=== PATIENT | female | born 1990 | race Caucasian/White ===

== ENCOUNTER 2016-07-07 19:15 | Emergency (ER) | payer MEDICAID, OTHER ==
[~2016-07-07] VITALS: Ht 167.6 cm; Wt 81.0 kg
[~2016-07-07 19:15] MED LIST: ACET500C5 PO; DICL50TA11 PO; HYDR-3498 PO; IBUP400T22 PO; IBUP800T25 PO; LORA-441 PO; OMEP20CA16 PO; PEN500 PO; UDMYL PO
[2016-07-07 19:57] VITALS: Ht 167.6 cm; Wt 81.0 kg
--- NOTE | 2016-07-07 21:07 | ERD ---
ER Documentation Chief Complaint Date/Time DATE: 07/07/16 TIME: 21:04 Chief Complaint MCCARTHY and jaw pain X 1 week, worst last day. no nuero deficit. HPI 35-year-old female presents to emergency department for complaints of headache, bilateral jaw pain, TMJ pain, for 1 week. Patient feels that her jaw most while sleeping. Patient described the headache as throbbing pain, for/10 scale, accompanied with jaw pain. Patient denies any fever or chills. Patient denies any head trauma. Patient took some ibuprofen for pain with Motrin. Patient denies any numbness or tingling. Patient denies any neck pain. Patient denies any dizziness. Patient denies any blurry vision. ROS All systems reviewed and are negative except as per history of present illness. Medications Home Meds Active Scripts Ibuprofen* (Motrin*) 400 Mg Tab, 400 MG PO Q6, #20 TAB Prov:SARAHY TEJADA PA-C 03/28/16 Penicillin V Potassium* (Penicillin V K*) 500 Mg Tab, 500 MG PO BID for 10 Days , TAB Prov:CARLIN MAGANA PA-C 12/18/15 Ibuprofen* (Motrin*) 800 Mg Tab, 800 MG PO Q6, #30 TAB Prov:CARLIN MAGANA PA-C 12/18/15 Omeprazole* (Omeprazole*) 20 Mg Capsule., 20 MG PO DAILY, #30 CAP Prov:STANLEY WEAVER NP 04/05/15 Magaldrate/Simethicone* (Mag-Al Plus Suspension*) 30 Ml Oral.susp, 30 ML PO Q6H Y for GASTROINTESTINAL UPSET, #120 ML Prov:STANLEY WEAVER NP 04/05/15 Diclofenac Sodium* (Diclofenac Sodium*) 50 Mg Tablet.dr, 50 MG PO TID, #20 TAB Prov:BUTCH CESAR DO 02/26/15 Hydrocodone Bit-Acetaminophen* ([place]*) 5-325 Mg Tab, 1 TAB PO Q6 Y for PAIN, # 7 TAB Prov:BUTCH CESAR DO 02/26/15 Lorazepam* (Ativan*) 0.5 Mg Tablet, 0.5 MG PO Q8, #10 Prov:FLOR STEVENSC 01/27/15 Acetaminophen* (Tylophen*) 500 Mg Capsule, 1 CAP PO Q6H Y for PAIN AND OR ELEVATED TEMP, #20 CAP Prov:PHONG JEWELL 01/21/15 Allergies Allergies: Coded Allergies: No Known Allergy (Unverified , 01/21/15) PMhx/Soc History of Surgery: No Anesthesia Reaction: No Hx Neurological Disorder: No Hx Respiratory Disorders: No Hx Cardiac Disorders: No Hx Psychiatric Problems: Yes (anxiety attacks) Hx Miscellaneous Medical Probl: Yes (HYPERTHYROIDISM) Hx Alcohol Use: Yes Hx Substance Use: No Hx Tobacco Use: No Smoking Status: Never smoker FmHx Family History: No coronary disease, No diabetes, No other Physical Exam Vitals Vital Signs Date Time Temp Pulse Resp B/P Pulse Ox O2 Delivery O2 Flow Rate FiO2 07/07/16 19:57 98.4 82 20 120/65 98 Physical Exam GENERAL: The patient is well developed and appropriate for usual state of health, in no apparent distress. HEENT: Atraumatic. Ears: Normal tympanic membrane, no erythema or bulging. No ear canal swelling. No ear discharge. No tenderness on palpation of bilateral TMJ area, and the tip of the jaw, able to do full range of motion without any restriction. Nose: normal nasal turbinates, no erythema or swelling. Normal nasal discharge. Throat: oropharynx clear. No tonsillar swelling or tonsillar exudates. No lymphadenopathy. CHEST: Clear to auscultation bilaterally. There are no rales, wheezes or rhonchi. HEART: Regular rate and rhythm. No murmurs, clicks, rubs or gallops. No S3 or S4. ABDOMEN: Soft, nontender and nondistended. Good bowel sounds. No rebound or guarding. No gross peritonitis. No gross organomegaly or masses. No Mendez sign or McBurney point tenderness. BACK: No midline or flank tenderness. EXTREMITIES: Equal pulses bilaterally. There is no peripheral clubbing, cyanosis or edema. No focal swelling or erythema. Full range of motion. Grossly neurovascularly intact. NEURO: Alert and oriented. Cranial nerves 2-12 intact. Motor strength in all 4 extremities with 5/5 strength. Sensation grossly intact. Normal speech and gait. Negative Romberg sign. Negative pronator drift. SKIN: There is no apparent rash or petechia. The skin is warm and dry. HEMATOLOGIC AND LYMPHATIC: There is no evidence of excessive bruising or lymphedema. No gross cervical, axillary, or inguinal lymphadenopathy. Results 24 hrs PROCEDURE: CT head, without contrast. CLINICAL INDICATION: Headache. TECHNIQUE: Noncontrast CT examination of the head, with axial, sagittal and coronal reformatted images. Automated dose exposure control was employed. CTDI: 44.68 mGy and DLP: 720.23 mGy-cm. COMPARISON: None. FINDINGS: Note acute hemorrhage. Subarachnoid spaces are substantially preserved and symmetric. Ventricles are unremarkable. No mass effect. Hodges-white matter distinction is preserved without evident decreased attenuation to suggest acute or recent infarct. Sinuses and osseous structures are unremarkable. IMPRESSION: No acute process in the head. RPTAT: [facility] Physician Christine Date Time Electronically viewed and signed by Physician Christine on 07/07/2016 22:31 RS/ CC: STANLEY WEAVER NP PROCEDURE: CT scan facial bones CLINICAL INDICATION: Headache, pain TECHNIQUE: CT scan of the face was performed on the a high-resolution multidetector CT scanner with multiple contiguous axial images obtained through the face. Coronal and sagittal reformatted images were obtained from the axial source images. Exam CTDI = 29.41 mGy and the DLP = 498.95 mGy-cm. One or more of the following dose reduction techniques were used: - Automated exposure control. - Adjustment of the mA and/or kV according to patient size. - Use of iterative reconstruction technique. COMPARISON: None available FINDINGS: The facial bones are intact. No fracture or dislocation is seen. Appearance of retention cysts in bilateral maxillary sinuses the largest 1.8 cm on the right. The soft tissues are unremarkable. The orbital globes are unremarkable. Nasal septum is midline. The zygomatic arches are symmetrically normal. IMPRESSION: No acute abnormality seen. RPTAT: HJES .Pert Sharp MD, MD Date Time Electronically viewed and signed by .Petr Sharp MD, MD on 07/07/2016 22:36 .S/ CC: STANLEY WEAVER NP Procedures/MDM Medical Decision Making: Patient symptoms is that is consistent with TMJ syndrome with nonspecific headache, possible tension headache, can be also early migraine. There is low suspicion for neurological emergencies at this time since patients neurologic exam is normal. Patient did not have any altered level consciousness, vomiting, changes in balance or memory and did not have any head injury. Patients CT scan of the head does not show any neurological emergencies at this time. Patient was given for tramadol for severe pain, ibuprofen for mild to moderate pain. Departure Diagnosis: Primary Impression: Headache Headache type: unspecified Headache chronicity pattern: acute headache Intractability: not intractable Qualified Code: R51 - Acute nonintractable headache, unspecified headache type Additional Impression: Jaw pain Condition: Stable Patient Instructions: Self-Care for Headaches, Tmj Syndrome STANLEY WEAVER NP Jul 07, 2016 21:06
--- NOTE | 2016-07-07 22:31 | RADRPT ---
PROCEDURE: CT head, without contrast. CLINICAL INDICATION: Headache. TECHNIQUE: Noncontrast CT examination of the head, with axial, sagittal and coronal reformatted im ages. Automated dose exposure control was employed. CTDI: 44.68 mGy and DLP: 720.23 mGy-cm. COMPARISON: None. FINDINGS: Note acute hemorrhage. Subarachnoid spaces are substantially preserved and symmetric. Ventricles are unremarkable. No mass effect. Hodges-white matter distinction is preserved without evident decreased attenuation t o suggest acute or recent infarct. Sinuses and osseous structures are unremarkable. IMPRESSION: No acute process in the head. RPTAT: [facility] Physician Christine Date Time Electronically viewed and signed by Physician Christine on 07/07/2016 22:31 RS/
--- NOTE | 2016-07-07 22:36 | RADRPT ---
PROCEDURE: CT scan facial bones CLINICAL INDICATION: Headache, pain TECHNIQUE: CT scan of the face was performed on the a high-resolution multidetector CT scanner wit h multiple contiguous axial images obtained through the face. Coronal and sagittal reformatted imag es were obtained from the axial source images. Exam CTDI = 29.41 mGy and the DLP = 498.95 mGy-cm. One or more of the following dose reduction techniques were used: - Automated exposure control. - Adjustment of the mA and/or kV according to patient size. - Use of iterative reconstruction technique. COMPARISON: None available FINDINGS: The facial bones are intact. No fracture or dislocation is seen. Appearance of retention cysts in bilateral maxillary sinuses the largest 1.8 cm on the right. The soft tissues are unremarkable. The orbital globes are unremarkable. Nasal septum is midline. The zygomatic arches are symmetrically normal. IMPRESSION: No acute abnormality seen. RPTAT: HJES .Petr Sharp MD, MD Date Time Electronically viewed and signed by .Petr Sharp MD, on 07/07/2016 22:36 .S/
[2016-07-07] MEDS ORDERED: TRAM50TA2 PO (22:47)
[2016-07-07] MEDS ORDERED: IBUP-1542 PO (22:47)
== END 2016-07-07 22:55 | disposition home or self-care (01) ==
LOC: FTE 19:15
DX: R51 Headache (principal); R68.84 Jaw pain
CPT/HCPCS: 70450; 70486; Z7502

== ENCOUNTER 2016-10-07 22:49 | Emergency (ER) | payer OTHER ==
[~2016-10-07] VITALS: Ht 165.1 cm; Wt 79.0 kg
[~2016-10-07 22:49] MED LIST changes: +IBUP-1542 PO; +TRAM50TA2 PO
[2016-10-07 23:17] VITALS: Ht 165.1 cm; Wt 79.0 kg
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
[2016-10-08] MEDS ORDERED: IBUPROFEN 600 MG TAB PO ONE
--- NOTE | 2016-10-08 00:36 | RADRPT ---
PROCEDURE: XR right foot. CLINICAL INDICATION: Lateral right foot pain TECHNIQUE: AP, lateral and oblique views of the right foot were obtained. COMPARISON: None. FINDINGS: Mineralization is within normal limits. No fracture or osseous lesion is identified. There is no e vidence for dislocation. Joint spaces are preserved. The soft tissues are unremarkable. There is n o evidence for radiopaque foreign body. RPTAT:HJJR IMPRESSION: Unremarkable right foot series. Physician Angella Date Time Electronically viewed and signed by Physician Angella on 10/08/2016 00:36 JR/
[2016-10-08] MEDS ORDERED: IBUP-1542 PO (01:05)
== END 2016-10-08 01:40 | disposition home or self-care (01) ==
LOC: FTE 22:49
DX: S90.31XA Contusion of right foot, initial encounter (principal); E03.9 Hypothyroidism, unspecified; W22.8XXA Striking against or struck by other objects, initial encounter; Y92.9 Unspecified place or not applicable
CPT/HCPCS: 73630; Z7610